=== PATIENT | female | born 1985 | race Two or more races ===

== ENCOUNTER 2019-07-12 11:07 | Emergency (ER) | payer SELFPAY ==
[~2019-07-12] VITALS: Ht 154.9 cm; Wt 80.0 kg
[2019-07-12 11:18] VITALS: BP 140/76
[2019-07-12] MEDS ORDERED: IBUPROFEN 200 MG TABLET. PO ONE (11:30)
--- NOTE | 2019-07-12 11:38 | PHYS DOC ---
Past Medical History Past Medical History: No Pertinent History Past Surgical History: No Surgical History Smoking Status: Former Smoker Alcohol Use: Occasionally General Adult EDM: Chief Complaint: ANKLE PROBLEM HPI: HPI: Patient is a 34 year old female who presents with that was holding her 2 puppies and going down the stairs when she missed 2 stairs. She has left lateral ankle pain into the lateral left foot with. Rates her pain at 7/10. 1+ swelling and bruising to the lateral left foot. Review of Systems: Review of Systems: Musculoskeletal: Denies back pain. Left ankle joint pain. [] Heart Score: Risk Factors: Risk Factors: DM, Current or recent (<one month) smoker, HTN, HLP, family history of CAD, obesity. Risk Scores: Score 0 - 3: 2.5% MACE over next 6 weeks - Discharge Home Score 4 - 6: 20.3% MACE over next 6 weeks - Admit for Clinical Observation Score 7 - 10: 72.7% MACE over next 6 weeks - Early Invasive Strategies Allergies: Allergies: Allergies Coded Allergies Type Severity Reaction Last Updated Verified No Known Drug Allergies 07/12/19 No Physical Exam: PE: Constitutional: Well developed, well nourished, no acute distress, non-toxic appearance. [] HENT: Normocephalic, atraumatic, bilateral external ears normal, oropharynx moist, no oral exudates, nose normal. [] Eyes: PERRLA, EOMI, conjunctiva normal, no discharge. [] Neck: Normal range of motion, no tenderness, supple, no stridor. [] Cardiovascular:Heart rate regular rhythm, no murmur [] Lungs & Thorax: Bilateral breath sounds clear to auscultation [] Abdomen: Bowel sounds normal, soft, no tenderness, no masses, no pulsatile masses. [] Skin: Warm, dry, no erythema, no rash. Lateral foot bruising.[] Back: No tenderness, no CVA tenderness. [] Extremities: Left lateral ankle tenderness, no cyanosis, no clubbing, limited ROM intact, lateral ankle 1+ edema. [] Neurologic: Alert and oriented X 3, normal motor function, normal sensory function, no focal deficits noted. [] Psychologic: Affect normal, judgement normal, mood normal. [] Current Patient Data: Vital Signs: Vital Signs Date Time Temp Pulse Resp B/P (MAP) Pulse Ox O2 Delivery O2 Flow Rate FiO2 07/12/19 11:18 98.6 97 18 140/76 (97) 98 Room Air 98.6 EKG: EKG: [] Radiology/Procedures: Radiology/Procedures: [] Impression: [facility] [address] [place] [address] IMAGING REPORT Signed PATIENT: GENI BERGMAN ACCOUNT: [id number] : 1985 LOCATION: ER AGE: 34 SEX: F EXAM STATUS: PRE ER ORD. PHYSICIAN: YOLIE CARVAJAL APRN REASON: lateral pain, twisted PROCEDURE: ANKLE LEFT 3V EXAM: ANKLE LEFT 3V 07/12/2019 11:23 AM CLINICAL INDICATION:Lateral pain, twisted COMPARISON:None TECHNIQUE:3 views of the left ankle FINDINGS:There is a small displaced avulsive fracture at the base of the fifth metatarsal. No other fracture. Ankle mortise is symmetric and talar dome is intact. No focal soft tissue abnormality. IMPRESSION:Small displaced avulsion fracture of the base of the fifth metatarsal. Electronically signed by: Tari Muñiz MD (07/12/2019 11:41 AM) [id number] DICTATED and SIGNED BY: TARI MUÑIZ MD DATE: 07/12/19 1141 Course & Med Decision Making: Course & Med Decision Making Pertinent Labs and Imaging studies reviewed. (See chart for details) Patient can wiggle her toes and has some ROM of the left ankle. Skin pink warm and dry. Pedal pulse is strong and present. Cap refill less than 3 seconds. No deformity. Tenderness to lateral ankle with palpation. 1+ swelling of joint. No laxity. Patient is placed in a boot. She is to follow up with Orthopedic in the next couple of weeks. [] Nalini Disclaimer: Nalini Disclaimer: This electronic medical record was generated, in whole or in part, using a voice recognition dictation system. Departure Departure Impression: Primary Impression: Avulsion fracture of metatarsal bone of left foot Qualified Codes: S92.302A - Fracture of unspecified metatarsal bone(s), left foot, initial encounter for closed fracture Disposition: HOME, SELF-CARE Condition: STABLE Referrals: JYOTI WALL MD Patient Instructions: Avulsion Fracture, RICE - Routine Care for Injuries Additional Instructions: Follow up with orthopedic in the next 7 days. Use ice and elevation to help with pain and swelling. Take pain medications as prescribed. Scripts Ibuprofen (IBUPROFEN) 600 Mg Tablet 600 MG PO PRN Q6HRS PRN for INFLAMMATION, #20 TAB Prov: YOLIE CARVAJAL APRN 07/12/19 Hydrocodone/Apap 5-325 (NORCO 5-325 TABLET) 1 Each Tablet 1 TAB PO PRN Q6HRS PRN for PAIN, #10 TAB 0 Refills Prov: YOLIE CARVAJAL APRN 07/12/19 YOLIE CARVAJAL APRN July 12, 2019 11:38
--- NOTE | 2019-07-12 11:44 | RAD ---
EXAM: ANKLE LEFT 3V 07/12/2019 11:23 AM CLINICAL INDICATION:Lateral pain, twisted COMPARISON:None TECHNIQUE:3 views of the left ankle FINDINGS:There is a small displaced avulsive fracture at the base of the fifth metatarsal. No other fracture. Ankle mortise is symmetric and talar dome is intact. No focal soft tissue abnormality. IMPRESSION:Small displaced avulsion fracture of the base of the fifth metatarsal. Electronically signed by: Tari Muñiz MD (07/12/2019 11:41 AM) [id number]
[2019-07-12] MEDS ORDERED: IBUP-1007 PO (11:57)
[2019-07-12] MEDS ORDERED: HYDR-3164 PO (11:57)
== END 2019-07-12 12:24 | disposition home or self-care (01) ==
LOC: ER 11:07
DX: S92.352A Displaced fracture of fifth metatarsal bone, left foot, initial encounter for closed fracture (principal); Z87.891 Personal history of nicotine dependence; W10.8XXA Fall (on) (from) other stairs and steps, initial encounter; Y93.89 Activity, other specified; Y92.89 Other specified places as the place of occurrence of the external cause; Y99.8 Other external cause status
CPT/HCPCS: 73610; 99283